=== PATIENT | female | born 1965 | race Caucasian/White ===

== ENCOUNTER 2021-06-11 18:36 | Emergency (ER) | payer BC ==
[2021-06-12 17:01] LABS: SARS-CoV-2 PCR by NAA DETECTED (NotDetected)
== END 2021-06-11 20:32 | disposition home or self-care (01) ==
LOC: ERS 18:36
DX: U07.1 COVID-19 (principal); E78.00 Pure hypercholesterolemia, unspecified
CPT/HCPCS: 71045; U0003; U0005